=== PATIENT | female | born 1990 ===

== ENCOUNTER 2016-09-25 00:09 | Emergency (ER) | payer SELFPAY ==
[2016-09-25 00:21] VITALS: BP 153/95; PULSE 71; RESP 16; TEMP 98.6; O2SAT 100
--- NOTE | 2016-09-25 00:56 | ED PDOC ---
HPI: Skin/Bite Injury Time Seen by Provider: 09/25/16 00:20 Chief Complaint (Nursing): Breast Problem Chief Complaint (Provider): left breast pain History Per: Patient History/Exam Limitations: no limitations Onset/Duration Of Symptoms: Days (1) Current Symptoms Are (Timing): Still Present Quality Of Symptoms: Painful Additional History Per: Patient Additional Complaint(s): 26 y/o female presents with painful bump to left breast x 1 day. Patient states she noticed bump to bottom of left breast upon waking up, noted pain to get worse throughout the day, with associated "red lines" traveling up from lump. Patient notes symptoms were worsened by wearing her bra. Denies fever, nausea/vomiting, drainage from site. Past Medical History Reviewed: Historical Data, Nursing Documentation, Vital Signs Vital Signs: Last Vital Signs Temp 98.6 F 09/25/16 00:16 Pulse 71 09/25/16 00:16 Resp 16 09/25/16 00:16 BP 153/95 H 09/25/16 00:16 Pulse Ox 100 09/25/16 00:16 - Medical History PMH: No Chronic Diseases - Surgical History Surgical History: No Surg Hx - Family History Family History: States: Unknown Family Hx - Living Arrangements Living Arrangements: With Family - Home Medications Home Medications: Ambulatory Orders Medication Instructions Recorded Clindamycin [Cleocin] 300 mg PO QID #39 cap 09/25/16 - Allergies Allergies/Adverse Reactions: Allergies Allergy/AdvReac Type Severity Reaction Status Date / Time No Known Allergies Allergy Verified 09/25/16 00:19 Review of Systems ROS Statement: Except As Marked, All Systems Reviewed And Found Negative Skin: Positive for: Lesions (left breast lump) Physical Exam - Reviewed Nursing Documentation Reviewed: Yes Vital Signs Reviewed: Yes - Physical Exam Appears: Positive for: Well, Non-toxic, No Acute Distress Head Exam: Positive for: ATRAUMATIC, NORMAL INSPECTION, NORMOCEPHALIC Skin: Positive for: Rash (tender non-draining lesion inferior left breast with surrounding erythema, + streaking erythema. ) Eye Exam: Positive for: Normal appearance ENT: Positive for: Normal ENT Inspection Cardiovascular/Chest: Positive for: Regular Rate, Rhythm Respiratory: Positive for: Normal Breath Sounds Extremity: Positive for: Normal ROM Neurologic/Psych: Positive for: Alert, Oriented - ECG O2 Sat by Pulse Oximetry: 100 - Progress ED Course And Treament: ibuprofen PO, clindamycin PO Patient educated on findings, advised warm compresses 3-5x daily. Rx clindamycin given. Follow up 48 hours. Return to ED sooner for fever, spreading redness, or other concerning symptoms. Disposition - Clinical Impression Clinical Impression: Cellulitis of breast, Abscess of breast - Patient ED Disposition Is Patient to be Admitted: No Counseled Patient/Family Regarding: Studies Performed, Diagnosis, Need For Followup, Rx Given - Disposition Disposition: Routine/Home Disposition Time: 00:57 Condition: STABLE Additional Instructions: Follow up in 2 days. Apply warm compresses 3-5 times daily. Take antibiotic as directed. Take Ibuprofen every 6-8 hours as directed, as needed. Return to ED for worsening/concerning symptoms. Prescriptions: Clindamycin [Cleocin] 300 mg PO QID #39 cap Instructions: Cellulitis (ED), Abscess (ED)
== END 2016-09-25 01:25 | disposition home or self-care (01) ==
LOC: H.ER 00:09
DX: N61.0 Mastitis without abscess (principal)